=== PATIENT | female | born 1995 | race Caucasian/White ===

== ENCOUNTER 2016-02-29 10:50 | Emergency (ER) | payer OTHER ==
[~2016-02-29] VITALS: Wt 108.9 kg
[~2016-02-29 10:50] MED LIST: ADVIL200 MG PO; ALLEGRA30 MG PO; BACTRIM DS 8001 TA1 PO; CETIRIZINE HCL10 MG PO; FLEXERIL10 MG PO; GILDESS PO; MOTRIN800 MG PO; PREDNICOT20 MG PO; PYRIDIUM200 M1 PO; QNASL40 MCG/Act NS; VICODIN 5/500 505 MG PO; XYZAL5 MG PO
[2016-02-29] MEDS ORDERED: IBUPROFEN600 MG PO (11:08)
[2016-02-29] MEDS ORDERED: BACTRIM DS 8001 TA1 PO (11:18)
== END 2016-02-29 11:08 | disposition home or self-care (01) ==
LOC: ED 10:50
DX: N76.4 Abscess of vulva (principal); F17.200 Nicotine dependence, unspecified, uncomplicated; Z79.899 Other long term (current) drug therapy

== ENCOUNTER 2019-03-30 08:51 | Emergency (ER) | payer OTHER ==
[~2019-03-30 08:51] MED LIST changes: +IBUPROFEN600 MG PO
[2019-03-30] MEDS ORDERED: ATIVAN0.5 MG PO (09:59)
== END 2019-03-30 10:45 | disposition home or self-care (01) ==
LOC: ED 08:51
DX: F41.0 Panic disorder [episodic paroxysmal anxiety] (principal); F41.1 Generalized anxiety disorder; F17.200 Nicotine dependence, unspecified, uncomplicated; Z79.899 Other long term (current) drug therapy

== ENCOUNTER 2023-02-03 16:22 | Emergency (ER) | payer OTHER ==
[~2023-02-03] VITALS: Ht 172.7 cm; Wt 117.9 kg
[~2023-02-03 16:22] MED LIST changes: +ATIVAN0.5 MG PO
[2023-02-03] MEDS ORDERED: WELLBUTRIN XL150 MG PO (16:33)
[2023-02-03] MEDS ORDERED: ATARAX,VISTARIL10 MG PO (16:34)
[2023-02-03 17:15] LABS: BASO % 0.5 % (0.0-1.0); EOS % 0.4 % (1.0-4.0); HEMATOCRIT 45.2 % (37.0-47.0); LYMPH # 1.8 10*3/uL (1.3-4.4); LYMPH % 24.9 % (27.0-41.0); MEAN CELL VOLUME 86.8 fl (81.0-99.0); MEAN CORPUSCULAR HGB 27.3 pg (27.0-31.0); MEAN CORPUSCULAR HGB CONC 31.4 g/dl (33.0-37.0); MONO # 0.5 10*3/uL (0.1-1.0); MONO % 6.7 % (3.0-9.0); NEUT # 4.9 10*3/uL (2.3-7.9); NEUT % 67.2 % (47.0-73.0); PLATELET COUNT AUTOMATED 354 10*3/uL (130-400); RED BLOOD COUNT 5.21 10*6/uL (4.10-5.10); RED CELL DISTRI WIDTH 13.3 % (0-14.5); WHITE BLOOD COUNT 7.3 10*3/uL (4.8-10.8)
[2023-02-03 17:26] LABS: ACT PARTIAL THROMBO TIME 26.6 SECONDS (20.0-32.1)
[2023-02-03 17:44] LABS: ALKALINE PHOSPHATASE 241 U/L (46-116); BUN 7 mg/dl (9-23); CHLORIDE 106 mmol/L (98-107); POTASSIUM 3.7 mmol/L (3.4-5.1); SGPT/ALT 428 U/L (5-49); TOTAL PROTEIN 7.7 gm/dL (6.0-8.0)
[2023-02-03 17:47] LABS: B-hCG (QUALITATIVE) NEGATIVE (NEGATIVE); ETHYL ALCOHOL < 3.0 mg/dl (<3); LIPASE 1374 U/L (12-53)
[2023-02-03 18:23] LABS: BILIRUBIN 2+ (Negative); BLOOD 1+ (Negative); CLARITY Clear (Clear); COLOR Dark Yellow (Yellow); GLUCOSE Negative (Negative); KETONE 2+ (Negative); LEUKO ESTERASE Negative (Negative); NITRITE Negative (Negative); URINE AMPHETAMINES Negative (1000ng/ml); URINE BARBITURATES Negative (200ng/ml); URINE BENZODIAZEPINES Negative (200ng/ml); URINE CANNABINOIDS (THC) Negative (50ng/ml); URINE COCAINE Negative (300ng/ml); URINE METHADONE Negative (300ng/ml); URINE OPIATES Negative (300ng/ml); URINE PHENCYCLIDINE Negative (25ng/ml)
[2023-02-03 18:32] LABS: MUCOUS 2+
[2023-02-04] MEDS ORDERED: PERCOCET 5-3251 EACH PO (09:16)
[2023-02-04] MEDS ORDERED: AMOX-CLAV 875-1 EACH PO (09:16)
[2023-02-04] MEDS ORDERED: ONDANSETRON4 MG SL (09:16)
== END 2023-02-04 09:22 | disposition home or self-care (01) ==
LOC: ED 16:22
PROVIDERS: Family Medicine
DX: K80.20 Calculus of gallbladder without cholecystitis without obstruction (principal); R79.89 Other specified abnormal findings of blood chemistry; K85.90 Acute pancreatitis without necrosis or infection, unspecified; F41.9 Anxiety disorder, unspecified; R11.2 Nausea with vomiting, unspecified; R42 Dizziness and giddiness; Z79.899 Other long term (current) drug therapy